=== PATIENT | male | born 1990 | race African-American/Black ===

== ENCOUNTER 2021-05-17 13:38 | Emergency (ER) | payer MEDICAID ==
[~2021-05-17] VITALS: Ht 170.2 cm; Wt 89.0 kg
[2021-05-17] MEDS ORDERED: KETOROLAC 60MG/2ML VIAL IM ONE (14:30)
[2021-05-17 14:41] LABS: EOSINOPHILS % 1.1 % (0.0-5.0); HEMOGLOBIN. 13.9 g/dL (14.0-18.0); LYMPHOCYTES % 13.6 % (20.0-50.0); MEAN CORPUSCULAR HEMOGLOBIN 29.8 pg (28.0-32.0); MEAN CORPUSCULAR VOLUME 85.9 fL (80.0-94.0); MEAN PLATELET VOLUME 7.6 fl (7.4-10.4); NEUTROPHILS % 75.3 % (40.0-76.0); PLATELET 313 x1000/uL (130-400); RED BLOOD CELL COUNT 4.66 mill/uL (4.7-6.1)
[2021-05-17 14:48] LABS: CHLORIDE 98 mEq/L (98-107)
[2021-05-17] MEDS ORDERED: MORPHINE SULFATE 10 MG/ML CPJ IM ONE (16:30)
[2021-05-17] MEDS ORDERED: COLC0.6C3 MT (16:37)
[2021-05-17] MEDS ORDERED: INDO50CA98 MT (16:37)
[2021-05-17 17:53] VITALS: BP 120/69
== END 2021-05-17 18:08 | disposition home or self-care (01) ==
LOC: ER 13:38
DX: M10.061 Idiopathic gout, right knee (principal); R03.0 Elevated blood-pressure reading, without diagnosis of hypertension
CPT/HCPCS: 36415; 73560; 80053; 84550; 85025; 85651; 86140; 96372; 99284; J1885; J2270